=== PATIENT | male | born 1950 | race Caucasian/White ===

== ENCOUNTER → 2019-04-04 | Outpatient (CLI) | payer MEDICARE, OTHER ==
[2019-04-04 15:30] LABS: BILIRUBIN,DIRECT 0.2 mg/dL (0.00-0.20); BILIRUBIN,TOTAL 1.6 mg/dL (0.1-1.0)
== END | disposition home or self-care (01) ==
LOC: LABPV 14:46
PROVIDERS: ATTEND Legal Medicine
DX: E80.6 Other disorders of bilirubin metabolism (principal)
CPT/HCPCS: 82247; 82248

== ENCOUNTER → 2020-05-22 | Outpatient (CLI) | payer MEDICARE, OTHER ==
[~2020-05-22] MED LIST: SESTAMIBI TC99M/UD ISOTOPE 1 EA INJ INJ ONE
[2020-05-22 08:20] VITALS: BP_SYST 145; BP_SYST 154; BP_DIAS 76; BP_DIAS 80
[2020-05-22 09:24] VITALS: BP 141/84
== END | disposition home or self-care (01) ==
LOC: MSR 08:04
PROVIDERS: ATTEND Internal Medicine Cardiovascular Disease
DX: I37.1 Nonrheumatic pulmonary valve insufficiency (principal); R94.39 Abnormal result of other cardiovascular function study
CPT/HCPCS: 78452; 93017; 93306; A9500

== ENCOUNTER 2021-06-15 06:56 | Day surgery (SDC) | payer MEDICARE, OTHER ==
[2021-06-12 08:33] LABS: COVID AG,FIA SOURCE NASOPHARYNGEAL
[~2021-06-15] VITALS: Ht 172.7 cm; Wt 75.9 kg
[~2021-06-15 06:56] MED LIST changes: +ATOR20TA86 PO; +RINGERS SOLUTION,LACTATED 1,000 ML IV ONE; -SESTAMIBI TC99M/UD ISOTOPE 1 EA INJ INJ ONE; +TELM40 PO
[2021-06-15] MEDS ORDERED: LIDOCAINE/PF 2% 5 ML SYRINGE IVP ONE (06:57)
[2021-06-15] MEDS ORDERED: PROPOFOL 1% 20 ML VIAL IVP ONE (06:57)
[2021-06-15] MEDS ORDERED: MIDAZOLAM HCL 2 MG/2 ML VIAL IVP ONE (06:57)
[2021-06-15] MEDS ORDERED: FentaNYL CITRATE PF 100 MCG/2 ML VIAL IVP ONE (06:57)
[2021-06-15] MEDS ORDERED: RINGERS SOLUTION,LACTATED 1,000 ML IV ONE (07:00)
[2021-06-15] MEDS ORDERED: BUPIVACAINE/EPI/PF 0.5% 30 ML VIAL ONE (08:15)
[2021-06-15] MEDS ORDERED: BUPIVACAINE HCL/PF 0.5% 30 ML VIAL ONE (09:04)
[2021-06-15] MEDS ORDERED: LIDOCAINE 1%/EPI 1:200,000/PF 30 ML VIAL ONE (09:04)
[2021-06-15] MEDS ORDERED: CeFAZolin 1 GM/DEXTROSE 50 ML IV ONE (09:55)
[2021-06-15] MEDS ORDERED: OXYGEN THERAPY IH SCH (20:00)
== END 2021-06-15 11:10 | disposition home or self-care (01) ==
LOC: SURGERY 06:56
PROVIDERS: ATTEND Surgery
DX: D17.21 Benign lipomatous neoplasm of skin and subcutaneous tissue of right arm (principal); I10 Essential (primary) hypertension; M19.90 Unspecified osteoarthritis, unspecified site; E78.00 Pure hypercholesterolemia, unspecified; Z79.899 Other long term (current) drug therapy; Z98.890 Other specified postprocedural states
CPT/HCPCS: 25071; 25075 ×2; 36415; 87426; 88304; 93005; C9803; J0690; J2250; J2704; J3010; J3490 ×3; J7120

== ENCOUNTER 2021-07-13 06:46 | Day surgery (SDC) | payer MEDICARE, OTHER ==
[~2021-07-13] VITALS: Ht 172.7 cm; Wt 77.3 kg
[~2021-07-13 06:46] MED LIST changes: -RINGERS SOLUTION,LACTATED 1,000 ML IV ONE
[2021-07-13] MEDS ORDERED: FentaNYL CITRATE PF 100 MCG/2 ML VIAL IVP ONE (06:47)
[2021-07-13] MEDS ORDERED: PROPOFOL 1% 20 ML VIAL IVP ONE (06:47)
[2021-07-13] MEDS ORDERED: MIDAZOLAM HCL 2 MG/2 ML VIAL IVP ONE (06:47)
[2021-07-13] MEDS ORDERED: LIDOCAINE/PF 2% 5 ML VIAL IM ONE (06:47)
[2021-07-13] MEDS ORDERED: RINGERS SOLUTION,LACTATED 1,000 ML IV ONE ×2 (07:00→07:18)
[2021-07-13 07:19] LABS: COVID AG,FIA SOURCE NASOPHARYNGEAL
[2021-07-13 07:25] LABS: BASOPHILS % (AUTO) 0.8 % (0.0-2.0); EOSINOPHILS % (AUTO) 0.9 % (1.0-6.0); HEMATOCRIT 46.8 % (41-53); LYMPHOCYTES # (AUTO) 1.7 K/uL (1.0-4.8); LYMPHOCYTES % (AUTO) 28.1 % (22.0-44.0); MEAN CORPUSCULAR HEMOGLOBIN 31.3 pg (26.0-34.0); MEAN CORPUSCULAR HGB CONC 34.2 G/dL (31.0-37.0); MEAN CORPUSCULAR VOLUME 92 fL (80-100); MONOCYTES # (AUTO) 0.5 K/uL (0.1-1.0); MONOCYTES % (AUTO) 7.8 % (2.0-9.0); NEUTROPHILS # (AUTO) 3.7 K/uL (1.8-7.7); NEUTROPHILS % (AUTO) 62.4 % (40.0-70.0); PLATELET COUNT (AUTO) 103 K/uL (150-450); RED BLOOD CELL COUNT(AUTO) 5.11 MIL/uL (4.50-5.90); RED CELL DISTRIBUTION WIDTH 13.8 % (11.5-14.5)
[2021-07-13 07:43] LABS: CALCIUM, TOTAL 9.1 mg/dL (8.8-10.5); CREATININE 1.3 mg/dL (0.60-1.30); POTASSIUM 4.4 mmol/L (3.5-5.1)
[2021-07-13 07:47] LABS: ALBUMIN 3.9 g/dL (3.4-5.0); BILIRUBIN,TOTAL 1.1 mg/dL (0.1-1.0); TOTAL PROTEIN, SERUM 7.3 g/dL (6.4-8.2)
[2021-07-13] MEDS ORDERED: BUPIVACAINE/EPI/PF 0.5% 30 ML VIAL ONE (08:47)
[2021-07-13] MEDS ORDERED: BUPIVACAINE HCL/PF 0.5% 30 ML VIAL ONE (08:47)
[2021-07-13] MEDS ORDERED: LIDOCAINE/PF 1% 30 ML VIAL ONE (08:48)
[2021-07-13] MEDS ORDERED: FentaNYL CITRATE PF 100 MCG/2 ML VIAL IVP PRN (10:30)
[2021-07-13] MEDS ORDERED: MEPERIDINE-PF 25 MG/ML VIAL IVP PRN (10:30)
[2021-07-13] MEDS ORDERED: HYDROmorphone 2 MG/ML VIAL IVP PRN (10:30)
[2021-07-13] MEDS ORDERED: OXYGEN THERAPY IH SCH (20:00)
== END 2021-07-13 11:30 | disposition home or self-care (01) ==
LOC: SURGERY 06:46
PROVIDERS: ATTEND Surgery
DX: D17.22 Benign lipomatous neoplasm of skin and subcutaneous tissue of left arm (principal); D17.79 Benign lipomatous neoplasm of other sites; I10 Essential (primary) hypertension; M19.90 Unspecified osteoarthritis, unspecified site; E78.00 Pure hypercholesterolemia, unspecified; Z98.890 Other specified postprocedural states; Z79.899 Other long term (current) drug therapy; E78.5 Hyperlipidemia, unspecified
CPT/HCPCS: 24075; 25071; 25075; 36415; 80053; 85025; 87426; 88304; C9803; J2250; J2704; J3010; J3490 ×3; J7120